=== PATIENT | female | born 1995 | race Two or more races ===

== ENCOUNTER 2025-02-09 18:13 | Emergency (ER) | payer MEDICAID, SELFPAY ==
[2025-02-09 18:16] VITALS: PULSE 108; RESP 18; O2SAT 99; BMI 29.0
[2025-02-09 18:19] VITALS: BP 132/91; PULSE 94; RESP 18; O2SAT 99
[2025-02-09 18:23] VITALS: TEMP 37.3
--- NOTE | 2025-02-09 19:46 | PD.EDRME ---
Rapid Medical Screening Exam E Arrival date/time: 02/09/25 18:13 29F with history of breast cancer presents to ED with 1 year of intermittent neurological abnormalities including facial numbness and bilateral leg/facial twitching. Patient has outpatient MRI scheduled next week, but was hoping to get it done today because she had a flare up. Patient declines CT and will wait for MRI. Chief Complaint: Neuro Symptoms/Deficit Vital signs: Vital Signs Pulse Rate 94 02/09/25 18:19 Respiratory Rate 18 02/09/25 18:19 Blood Pressure 132/91 H 02/09/25 18:19 Pulse Oximetry (%) 99 02/09/25 18:19 Oxygen Delivery Method Room Air 02/09/25 18:19
--- NOTE | 2025-02-09 19:57 | PC.NURSE ---
per provider patient eloped.
== END 2025-02-09 19:25 | disposition left against medical advice (07) ==
PROVIDERS: Emergency Provider Emergency Medicine; PCP Family Medicine
DX: R20.0 Anesthesia of skin (principal); R25.3 Fasciculation; Z53.29 Procedure and treatment not carried out because of patient's decision for other reasons; Z85.3 Personal history of malignant neoplasm of breast
CPT/HCPCS: 99281